=== PATIENT | male | born 1930 | race Caucasian/White ===

== ENCOUNTER 2017-01-22 09:07 | Emergency (ER) | payer MEDICARE, BC ==
[~2017-01-22] VITALS: Ht 160 cm; Wt 85.0 kg
[~2017-01-22 09:07] MED LIST: (None)250 MG; (None)250 MG OR; ACETAMIN325 MG PO; ALLEGRA-D 1212 HOUR PO; CIPRO500 MG OR; COZAAR100 MG PO; COZAAR50 MG OR; DOCUSATE CAL240 MG PO; ELDERTONIC OR; ELDERTONIC PO; FLAGYL500 MG PO; FLORASTOR250 M1 OR; FLUARIX QUADRIV1 IN2 IM; FLUARIX QUADRIV1 INJ IM; FLULAVAL IM; FUROSEMIDE40 MG PO; HYDROCHLOROT25 MG PO; HYDROCHLOROTH12.5 MG OR; KLOR-CON 1010 MEQ PO; KLOR-CON 88 MEQ OR; LACTINEX PO; LASIX20 MG PO; LOPRESSOR25 M1 PO; LORAZEPAM0.5 MG PO; LOVENOX40 MG/0.4 SC; MEDDOSEPAK PO; MEDROL4 M1 PO; MEGACE20 MG OR; MELOXICAM7.5 MG PO; METOPROL TAR50 MG OR; METOPROL TAR50 MG PO; METOPROLOL TART50 MG PO; METOPROLOL50 MG PO; MICRO-K10 ME1 OR; MULTI VIT OR; NITROFURANTOIN100 MG PO; OMEPRAZOLE20 MG OR; PAXIL20 MG PO; PERCOCET 5/325M1 TAB PO; PERIACTIN2 MG OR; PLAVIX75 MG PO; PRAVASTATIN80 MG OR; PREVNAR 13 IM; PRILOSEC20 MG PO; PROSTAT 101 OR; PROSTAT 64 PO; RISPERDAL0.5 MG PO; SIMVASTATIN20 MG PO; TIZANIDINE2 MG PO; TRAMADOL HCL100 MG PO; ULTRAM50 M1 PO; XTANDI40 MG PO; ZOCOR20 MG PO; ZYVOX600 MG OR
[2017-01-22] MEDS ORDERED: BACTRIM DS1 TAB PO ×2 (11:58→16:35)
[2017-01-22 13:03] LABS: HEMATOCRIT 36.1 % (39.0-50.0); HEMOGLOBIN 12.1 g/dl (14.0-18.0); IMMATURE GRANULOCYTES 0.5 % (0.0-1.0); MEAN CELL VOLUME 90.9 fL CALC (80.0-100.0); MEAN CORPUSCULAR HGB 30.5 pG CALC (26.0-32.0); MEAN CORPUSCULAR HGB CONC 33.5 g/L CALC (32.0-36.0); NEUT# 6.42 thou/uL (1.82-7.42); RED BLOOD COUNT 3.97 mill/uL (4.70-6.10); RED CELL DISTRI WIDTH 14.1 % (11.5-15.5)
[2017-01-22 13:14] LABS: CALCIUM 9.4 mg/dL (8.4-10.2); CREATININE 1.8 mg/dL (0.7-1.3); POTASSIUM 4.7 mmol/l (3.5-5.1)
[2017-01-22] MEDS ORDERED: LEVOTHYROXIN50 MCG PO (14:38)
[2017-01-22] MEDS ORDERED: NIFEDIPINE30 MG PO (14:38)
[2017-01-22] MEDS ORDERED: ATORVASTATIN CA20 MG PO (14:39)
[2017-01-22 16:31] VITALS: BP 123/78
[2017-01-22] MEDS ORDERED: CEPHALEXIN500 M1 PO (16:35)
== END 2017-01-22 17:04 | disposition home or self-care (01) ==
LOC: ED 09:07
PROVIDERS: Family Medicine
DX: L02.215 Cutaneous abscess of perineum (principal); I10 Essential (primary) hypertension; E78.5 Hyperlipidemia, unspecified; Z85.46 Personal history of malignant neoplasm of prostate

== ENCOUNTER 2017-09-15 07:24 | Inpatient (IN) | payer MEDICARE, BC ==
[2017-09-15] VITALS (11 sets, daily range): BP systolic 114–145; BP diastolic 56–69
[~2017-09-15] VITALS: Ht 160 cm; Wt 90.9 kg
[~2017-09-15 07:24] MED LIST changes: +ATORVASTATIN CA20 MG PO; +BACTRIM DS1 TAB PO; +CEPHALEXIN500 M1 PO; +LEVOTHYROXIN50 MCG PO; +NIFEDIPINE30 MG PO
[2017-09-15 07:58] LABS: HEMOGLOBIN 11.2 g/dl (14.0-18.0); IMMATURE GRANULOCYTES 0.6 % (0.0-1.0); MEAN CELL VOLUME 90.5 fL CALC (80.0-100.0); MEAN CORPUSCULAR HGB 29.5 pG CALC (26.0-32.0); MEAN CORPUSCULAR HGB CONC 32.6 g/L CALC (32.0-36.0); NEUT# 6.66 thou/uL (1.82-7.42); RED BLOOD COUNT 3.8 mill/uL (4.70-6.10); RED CELL DISTRI WIDTH 14.8 % (11.5-15.5)
[2017-09-15 08:06] LABS: ALBUMIN 3.7 g/dL (3.2-5.0); ALKALINE PHOSPHATASE 82 u/l (38-126); ANION GAP 15 (6-22 (CALC)); BILIRUBIN, TOTAL 0.5 mg/dL (0.0-1.4); BUN 31 mg/dL (8-23); BUN/CREATININE RATIO 21 (12-20 (CALC)); CARBON DIOXIDE 24 mmol/l (22-30); CHLORIDE 107 mmol/l (95-108); CREATININE 1.5 mg/dL (0.7-1.3); GFR 44 ML/MIN (>=60 (CALC)); GFR FOR AFR.AMER. 54 ML/MIN (>=60 (CALC)); LIPASE 48 u/l (23-300); POTASSIUM 4.1 mmol/l (3.5-5.1); SGOT/AST 30 u/l (19-48); SGPT/ALT 28 u/l (11-66); SODIUM 142 mmol/l (137-146); TOTAL PROTEIN 7.3 g/dL (6.3-8.2)
[2017-09-15 08:10] LABS: HEMATOCRIT 34.4 % (39.0-50.0)
[2017-09-15] MEDS ORDERED: PROTONIX20 M1 PO (13:53)
[2017-09-15] MEDS ORDERED: PERCOCET 5/325M1 TAB PO (13:55)
[2017-09-15] MEDS ORDERED: LACTINEX PO (13:56)
[2017-09-15] MEDS ORDERED: SIMVASTATIN40 MG PO (13:57)
[2017-09-15] MEDS ORDERED: LOPRESSOR50 M1 PO (14:52)
[2017-09-15] MEDS ORDERED: BICALUTAMIDE50 MG PO (14:53)
[2017-09-15] MEDS ORDERED: K-TABS10 MEQ PO (14:54)
[2017-09-15] MEDS ORDERED: LASIX 40 MG TAB40 MG PO (14:55)
[2017-09-15] MEDS ORDERED: COZAAR100 MG PO (14:56)
[2017-09-15] MEDS ORDERED: PREDNISONE5 MG PO (14:57)
[2017-09-15] MEDS ORDERED: ZYTIGA250 MG PO (14:59)
[2017-09-15] MEDS ORDERED: CALTRATE 600+D1 CHW PO (15:01)
[2017-09-15] MEDS ORDERED: MULTIVITAMI1 PO (15:11)
[2017-09-15 16:38] LABS: HEMATOCRIT 35.4 % (39.0-50.0); IMMATURE GRANULOCYTES 0.5 % (0.0-1.0); MEAN CELL VOLUME 95.9 fL CALC (80.0-100.0); MEAN CORPUSCULAR HGB 29.8 pG CALC (26.0-32.0); MEAN CORPUSCULAR HGB CONC 31.1 g/L CALC (32.0-36.0); NEUT# 7.15 thou/uL (1.82-7.42); RED BLOOD COUNT 3.69 mill/uL (4.70-6.10); RED CELL DISTRI WIDTH 14.8 % (11.5-15.5)
[2017-09-15 16:59] LABS: ANION GAP 14 (6-22 (CALC)); BUN 28 mg/dL (8-23); BUN/CREATININE RATIO 22 (12-20 (CALC)); CARBON DIOXIDE 19 mmol/l (22-30); CHLORIDE 110 mmol/l (95-108); CREATININE 1.3 mg/dL (0.7-1.3); GFR 52 ML/MIN (>=60 (CALC)); GFR FOR AFR.AMER. > 60 ML/MIN (>=60 (CALC)); POTASSIUM 4.5 mmol/l (3.5-5.1); SODIUM 139 mmol/l (137-146)
[2017-09-15 21:41] LABS: ALBUMIN 3.4 g/dL (3.2-5.0); ALKALINE PHOSPHATASE 80 u/l (38-126); ANION GAP 13 (6-22 (CALC)); BILIRUBIN, TOTAL 0.5 mg/dL (0.0-1.4); BUN 28 mg/dL (8-23); BUN/CREATININE RATIO 22 (12-20 (CALC)); CARBON DIOXIDE 22 mmol/l (22-30); CHLORIDE 108 mmol/l (95-108); CREATININE 1.3 mg/dL (0.7-1.3); GFR 52 ML/MIN (>=60 (CALC)); GFR FOR AFR.AMER. > 60 ML/MIN (>=60 (CALC)); POTASSIUM 4.6 mmol/l (3.5-5.1); SGOT/AST 29 u/l (19-48); SGPT/ALT 21 u/l (11-66); SODIUM 139 mmol/l (137-146); TOTAL PROTEIN 6.8 g/dL (6.3-8.2)
== END 2017-09-15 21:55 | DRG 394 ==
LOC: ED 07:24 → ED-I 09:37 → ED 09:50 → MS2 09:51 → ICU 11:13
PROVIDERS: Emergency Medicine; Surgery; ADMIT Internal Medicine Geriatric Medicine; ATTEND Internal Medicine Geriatric Medicine
DX: K91.86 Retained cholelithiasis following cholecystectomy (principal); I13.0 Hypertensive heart and chronic kidney disease with heart failure and stage 1 through stage 4 chronic kidney disease, or unspecified chronic kidney disease; I50.9 Heart failure, unspecified; N18.9 Chronic kidney disease, unspecified; N28.89 Other specified disorders of kidney and ureter; I25.10 Atherosclerotic heart disease of native coronary artery without angina pectoris; E78.5 Hyperlipidemia, unspecified; E03.9 Hypothyroidism, unspecified; R32 Unspecified urinary incontinence; M19.90 Unspecified osteoarthritis, unspecified site; Y83.6 Removal of other organ (partial) (total) as the cause of abnormal reaction of the patient, or of later complication, without mention of misadventure at the time of the procedure; Z95.5 Presence of coronary angioplasty implant and graft; Z85.46 Personal history of malignant neoplasm of prostate
CPT/HCPCS: J2060; Q9967; S0164

== ENCOUNTER 2017-12-07 09:54 | Outpatient (REF) | payer MEDICARE, BC ==
[~2017-12-07] VITALS: Ht 170.2 cm; Wt 79.4 kg
[~2017-12-07 09:54] MED LIST changes: +BICALUTAMIDE50 MG PO; +CALTRATE 600+D1 CHW PO; +K-TABS10 MEQ PO; +LASIX 40 MG TAB40 MG PO; +LOPRESSOR50 M1 PO; +MULTIVITAMI1 PO; +PREDNISONE5 MG PO; +PROTONIX20 M1 PO; +SIMVASTATIN40 MG PO; +ZYTIGA250 MG PO
[2017-12-07 10:09] VITALS: BP 116/52
--- NOTE | 2017-12-07 14:24 | NUR ---
VS /p 15" 97, 66, 19, 120/56 VS /p 30" 96.8, 71, 18, 118/53
== END 2017-12-07 15:00 | disposition home or self-care (01) ==
LOC: INF 09:54
PROVIDERS: ATTEND Internal Medicine
DX: D50.8 Other iron deficiency anemias (principal); C61 Malignant neoplasm of prostate; C79.51 Secondary malignant neoplasm of bone; C64.2 Malignant neoplasm of left kidney, except renal pelvis

== ENCOUNTER 2018-01-11 19:17 | Emergency (ER) | payer MEDICARE, BC ==
[~2018-01-11] VITALS: Ht 170.2 cm; Wt 165.0 kg
[2018-01-11] MEDS ORDERED: MOTRIN800 MG PO (20:17)
[2018-01-11 20:45] VITALS: BP 121/69
== END 2018-01-11 20:45 | disposition home or self-care (01) ==
LOC: ED 19:17
DX: S43.421A Sprain of right rotator cuff capsule, initial encounter (principal); S50.811A Abrasion of right forearm, initial encounter; M25.511 Pain in right shoulder; W18.39XA Other fall on same level, initial encounter; Y93.E9 Activity, other interior property and clothing maintenance; Y92.007 Garden or yard of unspecified non-institutional (private) residence as the place of occurrence of the external cause; R53.1 Weakness; I10 Essential (primary) hypertension

== ENCOUNTER 2018-01-19 06:12 | Emergency (ER) | payer MEDICARE, BC ==
[~2018-01-19] VITALS: Ht 170.2 cm; Wt 74.0 kg
[~2018-01-19 06:12] MED LIST changes: +MOTRIN800 MG PO
[2018-01-19 07:20] VITALS: BP 112/54
== END 2018-01-19 07:28 | disposition home or self-care (01) ==
LOC: ED 06:12
DX: S51.011A Laceration without foreign body of right elbow, initial encounter (principal); I13.0 Hypertensive heart and chronic kidney disease with heart failure and stage 1 through stage 4 chronic kidney disease, or unspecified chronic kidney disease; I50.9 Heart failure, unspecified; N18.9 Chronic kidney disease, unspecified; E03.9 Hypothyroidism, unspecified; E78.5 Hyperlipidemia, unspecified; W18.39XA Other fall on same level, initial encounter; Y92.410 Unspecified street and highway as the place of occurrence of the external cause

== ENCOUNTER 2018-04-12 10:25 | Emergency (ER) | payer MEDICARE, BC ==
[~2018-04-12] VITALS: Ht 170.2 cm; Wt 75.0 kg
[2018-04-12 10:49] LABS: IMMATURE GRANULOCYTES 2.9 % (0.0-5.0); MEAN CORPUSCULAR HGB CONC 32.3 g/L CALC (32.0-36.0); NEUT# 8.23 thou/uL (1.82-7.42); RED BLOOD COUNT 3.23 mill/uL (4.70-6.10); RED CELL DISTRI WIDTH 18.5 % (11.5-15.5)
[2018-04-12 10:50] LABS: HEMOGLOBIN 9.7 g/dl (14.0-18.0); MEAN CELL VOLUME 92.9 fL CALC (80.0-100.0)
[2018-04-12 11:12] LABS: INTERNATIONAL NORMALIZED RATIO 1.1 RATIO (0.7-1.3); PROTHROMBIN TIME 11.4 SECONDS (9.0-12.5)
[2018-04-12 11:13] LABS: ALBUMIN 3.5 g/dL (3.2-5.0); BILIRUBIN, TOTAL 0.9 mg/dL (0.0-1.4); TOTAL PROTEIN 6.2 g/dL (6.3-8.2)
[2018-04-12 11:20] LABS: CREATININE 4.8 mg/dL (0.7-1.3); POTASSIUM 5.1 mmol/l (3.5-5.1)
[2018-04-12 14:28] VITALS: BP 87/44
== END 2018-04-12 14:28 | disposition short-term general hospital (02) ==
LOC: ED 10:25
PROVIDERS: Family Medicine
DX: G45.9 Transient cerebral ischemic attack, unspecified (principal); I13.0 Hypertensive heart and chronic kidney disease with heart failure and stage 1 through stage 4 chronic kidney disease, or unspecified chronic kidney disease; I50.9 Heart failure, unspecified; N18.9 Chronic kidney disease, unspecified; E03.9 Hypothyroidism, unspecified; E78.5 Hyperlipidemia, unspecified; R29.810 Facial weakness; R47.01 Aphasia; R27.0 Ataxia, unspecified
CPT/HCPCS: J2997